=== PATIENT | male | born 1955 | race Caucasian/White ===

== ENCOUNTER → 2021-10-26 | Outpatient (CLI) | payer OTHER | LOC: KOH-I 13:00 | DX: N20.0 Calculus of kidney (principal); K31.89 Other diseases of stomach and duodenum | CPT/HCPCS: 74176 ==

== ENCOUNTER → 2021-12-13 | Outpatient (CLI) | payer OTHER | LOC: EMI 09:15 | DX: R25.8 Other abnormal involuntary movements (principal); R29.898 Other symptoms and signs involving the musculoskeletal system; G20 Parkinson's disease | CPT/HCPCS: 70551 ==